=== PATIENT | male | born 1965 | race Caucasian/White ===

== ENCOUNTER 2020-03-16 01:57 | Emergency (ER) | payer OTHER | END 2020-03-16 03:23 | disposition home or self-care (01) | LOC: ER 01:57 | DX: J40 Bronchitis, not specified as acute or chronic (principal); F10.139 Alcohol abuse with withdrawal, unspecified | CPT/HCPCS: 71045; 93005; 93010 ==

== ENCOUNTER 2020-03-16 21:13 | Inpatient (IN) | payer OTHER ==
[~2020-03-16] VITALS: Ht 188 cm; Wt 96.7 kg
[2020-03-16 22:00] LABS: BASOPHILS ABSOLUTE AUTO 0.04 K/mm3 (0.00-0.23); BASOPHILS PERCENT AUTO 1 % (0-2); EOSINOPHILS ABSOLUTE AUTO 0.27 K/mm3 (0.00-0.68); EOSINOPHILS PERCENT AUTO 3 % (0-6); Hematocrit 42.1 % (37.0-53.0); Hemoglobin 14.2 g/dL (13.5-17.5); IMMATURE GRAN ABSOLUTE AUTO 0.02 K/mm3 (0.00-0.10); IMMATURE GRAN PERCENT AUTO 0 % (0-1); LYMPHOCYTES ABSOLUTE AUTO 2.82 K/mm3 (0.84-5.20); LYMPHOCYTES PERCENT AUTO 34 % (21-46); MONOCYTES ABSOLUTE AUTO 0.61 K/mm3 (0.16-1.47); MONOCYTES PERCENT AUTO 7 % (4-13); Mean Corpuscular HGB 32.9 pg (26.0-34.0); Mean Corpuscular HGB Conc 33.7 g/dL (31.5-36.5); Mean Corpuscular Volume 98 fL (80-100); Mean Platelet Volume 8.6 fL (9.1-12.4); NEUTROPHILS ABSOLUTE AUTO 4.51 K/mm3 (1.96-9.15); NEUTROPHILS PERCENT AUTO 55 % (41-73); Platelet Count 221 K/mm3 (150-400); RDW Coefficient Variation 12.5 % (11.7-14.2); RDW Standard Deviation 45.7 fL (35.1-46.3); Red Blood Cell Count 4.31 M/mm3 (4.30-5.90); White Blood Cell Count 8.27 K/mm3 (4.00-11.30)
[2020-03-16 22:20] LABS: Acetaminophen, Random <2.0 ug/mL (10.0-30.0); Alanine Aminotransfer (ALT/SGP 90 U/L (12-78); Albumin, Blood 3.4 g/dL (3.4-5.0); Albumin/Globulin Ratio 1.1 (0.8-1.8); Alk Phos 57 U/L (50-136); Anion Gap 6 mmol/L (6-16); Aspartate Aminotrans (AST/SGOT 60 U/L (12-37); Bilirubin, Total 0.2 mg/dL (0.1-1.0); Blood Urea Nitrogen 7 mg/dL (8-24); CO2, Blood 26 mmol/L (21-32); Calcium, Blood 8.4 mg/dL (8.5-10.1); Chloride, Blood 108 mmol/L (98-108); Creatinine, Blood 0.78 mg/dL (0.60-1.20); Ethanol (Alcohol), Blood, Med 239 mg/dL; Glomerular Filtration Rate >60 (60-); Glucose, Blood 115 mg/dL (70-99); Potassium, Blood 3.6 mmol/L (3.5-5.5); Salicylate 4.1 mg/dL (2.8-20.0); Sodium, Blood 140 mmol/L (136-145); Total Protein, Blood 6.4 g/dL (6.4-8.2)
[2020-03-17 00:55] LABS: Source, Urine Clean Catch
[2020-03-17 00:57] LABS: Bilirubin, Urine Neg (Neg); Blood, Urine 2+ (Neg); Glucose Qualitative, Urine 1+ (Neg); Ketones, Urine Neg (Neg); Leukocyte Esterase, Urine Neg (Neg); Nitrite, Urine Neg (Neg); Protein, Urine Neg (Neg); Specific Gravity, Urine 1.015 (1.003-1.022); Urobilinogen, Urine NORM (Normal)
[2020-03-17 01:00] LABS: Appearance, Urine Clear (Clear); Color, Urine Yellow (P-Yellow)
[2020-03-17 01:03] LABS: Bacteria Few /hpf; Hyaline Casts 0-2 /lpf (0-2); Squamous Epithelial Cells Not Seen /hpf (Few); White Blood Cells, Urine 0-2 /hpf (0-5)
[2020-03-17 01:07] LABS: U Amphetamine Screen Not Detected; U Barbituate Screen Not Detected; U Benzodiazapine Screen DETECTED; U Cocaine Screen Not Detected; U Methamphetamine Screen Not Detected
[2020-03-17 01:08] LABS: U Buprenorphine Screen Not Detected; U Cannabinoids Screen Not Detected; U Methadone Screen Not Detected; U Opiates Screen Not Detected; U Oxycodone Screen Not Detected; U Phencyclidine Screen Not Detected; U Propoxyphene Screen Not Detected
[2020-03-17 03:36] LABS: BASOPHILS ABSOLUTE AUTO 0.02 K/mm3 (0.00-0.23); BASOPHILS PERCENT AUTO 0 % (0-2); EOSINOPHILS ABSOLUTE AUTO 0.24 K/mm3 (0.00-0.68); EOSINOPHILS PERCENT AUTO 4 % (0-6); Hematocrit 40.6 % (37.0-53.0); Hemoglobin 13.6 g/dL (13.5-17.5); IMMATURE GRAN ABSOLUTE AUTO 0.01 K/mm3 (0.00-0.10); IMMATURE GRAN PERCENT AUTO 0 % (0-1); LYMPHOCYTES PERCENT AUTO 37 % (21-46); MONOCYTES ABSOLUTE AUTO 0.36 K/mm3 (0.16-1.47); MONOCYTES PERCENT AUTO 6 % (4-13); Mean Corpuscular HGB 33.3 pg (26.0-34.0); Mean Corpuscular HGB Conc 33.5 g/dL (31.5-36.5); Mean Corpuscular Volume 99 fL (80-100); Mean Platelet Volume 8.5 fL (9.1-12.4); NEUTROPHILS ABSOLUTE AUTO 3.49 K/mm3 (1.96-9.15); NEUTROPHILS PERCENT AUTO 54 % (41-73); Platelet Count 194 K/mm3 (150-400); RDW Coefficient Variation 12.8 % (11.7-14.2); RDW Standard Deviation 46.8 fL (35.1-46.3); Red Blood Cell Count 4.09 M/mm3 (4.30-5.90); White Blood Cell Count 6.52 K/mm3 (4.00-11.30)
[2020-03-17 03:54] LABS: Alanine Aminotransfer (ALT/SGP 88 U/L (12-78); Albumin, Blood 3.4 g/dL (3.4-5.0); Albumin/Globulin Ratio 1.1 (0.8-1.8); Alk Phos 56 U/L (50-136); Anion Gap 5 mmol/L (6-16); Aspartate Aminotrans (AST/SGOT 54 U/L (12-37); Bilirubin, Total 0.3 mg/dL (0.1-1.0); Blood Urea Nitrogen 6 mg/dL (8-24); Bun/Creatinine Ratio 7.8 (12.0-20.0); CO2, Blood 27 mmol/L (21-32); Calcium, Blood 8.2 mg/dL (8.5-10.1); Chloride, Blood 110 mmol/L (98-108); Creatinine, Blood 0.77 mg/dL (0.60-1.20); Glomerular Filtration Rate >60 (60-); Glucose, Blood 84 mg/dL (70-99); Potassium, Blood 3.8 mmol/L (3.5-5.5); Sodium, Blood 142 mmol/L (136-145); Total Protein, Blood 6.4 g/dL (6.4-8.2)
--- NOTE | 2020-03-17 04:26 | NUR ---
PATIENT ARRIVED TO ICU03 AT APPROX 0230 VIA GURNEY FROM ER. PATIENT LETHARGIC AND SLIDE TRANSFER FROM [facility] TO BED WITH MAXIMUM ASSIST. PATIENT AWAKENS TO VERBAL STIMULATION BUT HIS WORDS ARE MUMBLED AND SLURRED AND DO NOT MAKE SENSE, ADMISSION NOT COMPLETED D/T PATIENTS AMS. ASSESMENT COMPLETED AND SHORTLY AFTER PATIENT EXPERIENCED A SEIZURE. HE STARTED TO COUGH WHITE FROTHY SPITTLE UP, TURNED VERY RED, STARTED TO TREMOR HIS EYES SHUT. HIS HEAD TURNED TO THE RIGHT AND HIS BODY STARTED TO ARCH UP AND TO THE RIGHT. STAFF TURNED PATIENT ON TO HIS RIGHT, SUCTION AT THE READY AND MD PETER NOTIFIED, ORDERS RECIEVED. PATIENT SEIZURE LASTED APPROX 30 SECOUNDS TO 1 MINUTE, WHEN EPISODE STOPPED PATIENT WAS POST ICTAL AND UNROUSABLE FOR APPROX 10 MINUTES. MEDICATION GIVEN PER MD ORDERS AND SEIZURE PADS PLACED ON THE BED. -SITTER AT DOOR FOR 1:1 OBSERVATION -POISON CONTROL CONSULTED AND LABS DRAWN. -MONITORING PATIENTS VS AND BEHAVIORS MILAGROS
--- NOTE | 2020-03-17 08:10 | NUR ---
ASSUMED CARE OF PT FROM MARYSOL PALOMINO. PT EASILY AWAKEN, BUT FALLS BACK TO SLEEP EASILY. UPON QUESTIONING PT ADMITS TO TAKING A BOTTLE LIBRIUM TO END HIS LIFE. PT ALSO ADMITS HE WAS DRINKING ETOH PRIOR TO TAKING THE BOTTLE OF PILLS. PT CURRENTLY DENIES ANY THOUGHTS OF HARMING HIMSELF OR WANTING TO END HIS LIFE. VITALS ARE CURRENTLY STABLE, MONITOR SHOWS PT TO BE IN SINUS RHYTHM. PT WAS REQUESTING FOOD AND DRINK. INSTRUCTED PT OF CURRENT NPO ORDER AND WHEN DR ROUNDS OF POSSIBLY ADVANCING HIS DIET. SEIZURE PADS IN PLACE ON BED. PT REMAINS A 1:1 SUICIDE PRECAUTIONS. ROOM CHECKED AND UN-NEEDED EQUIPMENTED REMOVED.
--- NOTE | 2020-03-17 09:03 | NUR ---
GEORGES FROM POISON CONTROL CALLED AND REQUESTED UPDATE. NO NEW RECOMMENDATIONS RECEIVED AT THIS TIME. POISON CONTROL WILL CALL BACK LATER TO CHECK ON LAB LEVELS. NOTIFIED DR AVILA THAT KEPPRA WASN'T RECOMMENDED BY POISON CONTROL. ORDERS RECEIVED TO D/C MEDICATION.
--- NOTE | 2020-03-17 10:10 | NUR ---
PT CALLED RN TO BEDSIDE AND EXPRESSED THAT HE NEEDED TO CHANGE HIS HABITS AND A WANT TO STOP DRINKING ETOH. DISCUSSED WITH PT ABOUT REHAB/TREATMENT FOR ETOH ABUSE. PT IS AWARE OF HIS DRINKING PROBLEM.
--- NOTE | 2020-03-17 11:30 | NUR ---
PT C/O OF RUQ ABD PAIN W/ NAUSEA. PT NOTED TO HAVE TREMORS AT REST. PRN ZOFRAN GIVEN AND DR AVILA NOTIFIED OF PT'S CHANGE IN STATUS. ORDERS RECEIVED FOR PRN PAIN MEDICATION.
--- NOTE | 2020-03-17 11:59 | NUR ---
SPOKE WITH POISON CONTROL, THEY ARE NO LONGER NEEDING SALICYLIC LEVELS, SINCE PT'S LABS HAVE BEEN GREATLY DECREASING. RECOMMENDATIONS TO MONITOR RESPIRATORY STATUS AND PROVIDE SUPPORTIVE CARE IF NEEDED. PT'S ABD PAIN/NAUSEA IS GREATLY IMPROVED AND PT TOLERATED EATING LUNCH. PT IS RESTING IN BED, FORGETFUL ON DATE/CARE PLAN, KNOWS HE'S AT THE HOSPITAL AND THAT HE TOOK A BOTTLE OF LIBRIUM AND WAS DRINKING ETOH. PT HAS TREMORS WITH ACTIVITY. PT REMAINS ON ROOM AIR WITH SPO2 IN HIGH 90'S. MONITOR SHOWS PT TO BE IN SINUS RHYTHM. VITALS HAVE BEEN STABLE. PT DENIES ANY THOUGHTS OF HARM TO SELF OR WANT TO END HIS LIFE. PT CONTINUES TO EXPRESS THAT HE WANTS TO GET SOBER AND SEEK REHABILITATION. PT'S ROOM CHECKED FOR SAFETY, PT REMAINS 1:1.
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
--- NOTE | 2020-03-17 14:49 | NUR ---
DR SWENSON D/C'D SUICIDE PRECAUTIONS AND DR VILLA. DR AVILA CHANGED PT TO MEDICAL W/TELE & SPO2 MONITOR. CONTACTED CASE MANAGEMENT ABOUT ETOH TREATMENT PROGRAMS FOR PT. CASE MANAGEMENT WILL COME SEE THE PT THIS AFTERNOON. PT ASSISTED UP TO CHAIR, WEAK AND SHAKY, REQUIRED 1 PERSON STEADY ASSIST.
--- NOTE | 2020-03-17 16:47 | NUR ---
TRANSFER OF CARE REPORT GIVEN TO MARYSOL METZ ON MEDICAL FLOOR. PT TRANSFERRED TO ROOM 301. BELONGINGS GATHERED AND TRANSFERRED WITH PT. PRIOR TO TRANSFER, PT COMPLETED IVF INFUSION. PT CONTINUES TO BE ON ROOM AIR, MAINTAINING SPO2, WEB PROJECT MANAGER SHOWED PT TO BE IN SINUS RHYTHM. VITALS HAVE REMAINED STABLE. PT CONTINUES TO EXPRESS WANTING TO GET SOBER AND INTO AN ETOH TREATMENT PROGRAM.
--- NOTE | 2020-03-17 18:27 | NUR ---
SHIFT SUMMARY PT A TRANSFER TO ROOM 301 FROM ICU3 THIS EVENING. PT ALERT, ORIENTED TO ROOM AND CALL LIGHT. PT AMBULATED IN [place] WITH CANE, WITH FAMILY. PT HAS NO COMPLAINTS OF PAIN AT THIS TIME, EATING FRUIT. BED ALARM SET FOR FALL RISK AND REMINDED PT TO CALL IF WANTING TO GET UP AND AMBULATE IN ROOM. NO DISTRESS AT THIS TIME. CALL LIGHT IN REACH. WILL CONTINUE TO MONITOR AND REPORT TO ONCOMING RN.
--- NOTE | 2020-03-17 18:30 | NUR ---
Care done by TRANSITION SPECIALIST 2 student. KAMILA
--- NOTE | 2020-03-18 03:50 | NUR ---
PHYSICIAN CONTACT PER TELE RECORDS SUPERVISOR, PT SUSTAINING NEW RYTHYM OF A. FLUTTER WITH RATE IN THE 130'S. BP OF 122/80. CAR ELECTRONICS INSTALLER PHYSICIAN NOTIFIED, NEW ORDERS FOR LOPRESSOR 5MG IV NOW.
[2020-03-18 05:19] LABS: Albumin, Blood 3.2 g/dL (3.4-5.0); Anion Gap 6 mmol/L (6-16); Blood Urea Nitrogen 8 mg/dL (8-24); CO2, Blood 28 mmol/L (21-32); Calcium, Blood 8.7 mg/dL (8.5-10.1); Chloride, Blood 106 mmol/L (98-108); Glomerular Filtration Rate >60 (60-); Glucose, Blood 127 mg/dL (70-99); Phosphorus, Blood 4.1 mg/dL (2.5-4.9); Potassium, Blood 3.5 mmol/L (3.5-5.5); Sodium, Blood 140 mmol/L (136-145)
--- NOTE | 2020-03-18 05:31 | NUR ---
BEESWAX BLEACHER SUMMARY PT HAS BEEN LETHARGIC AND APPEARED TO SLEEP MOST OF THE SHIFT. DENIES PAIN AT THIS TIME. ANXIOUS AT TIMES WHEN AWAKE. SEE PREVIOUS NOTES REGARDING PHYSICIAN CONTACT. BED IN LOWEST POSITON WITH CALL LIGHT IN REACH. WILL CONTINUE TO MONITOR AND REPORT TO ONCOMING RN.
--- NOTE | 2020-03-18 07:31 | NUR ---
patient went for a walk to the coffee cart downstairs.
[2020-03-18] MEDS ORDERED: NICO21TP TOP (10:49)
[2020-03-18] MEDS ORDERED: Hair, Skin & N1 EACH PO (10:50)
--- NOTE | 2020-03-18 12:31 | NUR ---
PATIENT DC'D HOME WITH MOTHER. PATIENT DENIES ANY QUESTIONS OR CONCERNS ABOUT DC INSTRUCTIONS.
== END 2020-03-18 12:25 | disposition home or self-care (01) | DRG 918 ==
LOC: ER 21:13 → ICUW 21:14 → ICUE 21:14 → ICUW 22:58 → ER 22:58 → ICUE 22:58 → ICUW 03-17 02:30 → MEDS 03-17 16:49
PROVIDERS: Emergency Medicine; Family Medicine; ADMIT Internal Medicine
DX: T42.4X2A Poisoning by benzodiazepines, intentional self-harm, initial encounter (principal); G40.509 Epileptic seizures related to external causes, not intractable, without status epilepticus; F10.229 Alcohol dependence with intoxication, unspecified; F17.210 Nicotine dependence, cigarettes, uncomplicated; F32.9 Major depressive disorder, single episode, unspecified
CPT/HCPCS: 36415; 76705; 80053; 80069; 81001; 83735; 85025; 93005; 93010; 99285-25; G0480; J1650; J1953; J2060; J2405; J3010; J7030; U0003